=== PATIENT | male | born 1940 | race Caucasian/White ===

== ENCOUNTER 2018-09-04 00:54 | Outpatient (CLI) | payer MEDICARE, BC ==
[~2018-09-04 00:54] MED LIST: ASPI-611; COL100C PO; LEVO500T2 PO; OLME1TAB19 PO; OXYC-147 PO; SIMV20TA5 PO
== END 2018-09-04 23:59 | disposition home or self-care (01) ==
LOC: DIABETIC 00:54
PROVIDERS: ATTEND Specialist
DX: E11.9 Type 2 diabetes mellitus without complications (principal); I10 Essential (primary) hypertension; Z79.82 Long term (current) use of aspirin; Z79.84 Long term (current) use of oral hypoglycemic drugs; Z87.891 Personal history of nicotine dependence
CPT/HCPCS: G0108

== ENCOUNTER 2021-12-06 03:55 | Emergency (ER) | payer MEDICARE, BC ==
[~2021-12-06] VITALS: Ht 175.3 cm; Wt 79.5 kg
[~2021-12-06 03:55] MED LIST changes: +SIMV-42 PO; -SIMV20TA5 PO
[2021-12-06 04:01] VITALS: BP 116/67
[2021-12-06] MEDS ORDERED: LIDOcaine 1% 30ml preserv. free vial IJ ONE (04:55)
[2021-12-06] MEDS ORDERED: cyclobenzaprine 10mg tablet PO ONE (05:10)
[2021-12-06] MEDS ORDERED: METH-797 PO (05:11)
== END 2021-12-07 07:06 | disposition home or self-care (01) ==
LOC: ER 03:56
DX: S39.012A Strain of muscle, fascia and tendon of lower back, initial encounter (principal); M62.830 Muscle spasm of back; Z98.890 Other specified postprocedural states; X58.XXXA Exposure to other specified factors, initial encounter; Y93.89 Activity, other specified; Y92.89 Other specified places as the place of occurrence of the external cause; Y99.8 Other external cause status
CPT/HCPCS: 20552; 99284